=== PATIENT | female | born 2000 | race African-American/Black ===

== ENCOUNTER → 2018-08-31 | Outpatient (CLI) | payer OTHER ==
--- NOTE | 2018-08-31 17:20 | REP ---
TRIPLE PHASE BONE SCAN OF THE ANKLES AND FEET: Following the intravenous administration of 21.7 millicuries of Technetium 99M MDP, patient's ankles and feet are imaged in the flow phase and the anterior and posterior projections. There is fairly symmetrical blood flow bilaterally. Immediate blood pool in 3 hour delayed images are performed in the ankles and feet in multiple projections. Slightly increased blood pooling is seen medially in the left hindfoot. There is focal increased uptake at this location on delayed images. This appears to be located in the anteromedial aspect of the talus or calcaneus near the anterior aspect of the talocalcaneal joint. Otherwise there is symmetrical radiotracer uptake bilaterally. No other scintigraphic abnormalities are seen. IMPRESSION: Focal increase blood pooling and delayed activity in the left medial hindfoot, specifically this appears to be located in the anteromedial aspect of the talus or calcaneus. This could represent a stress fracture or stress related change. Electronically Signed by Caesar Mitchell MD 09/01/2018 03:23 P
== END ==
LOC: M RAD 08:44
PROVIDERS: ATTEND Family Medicine
DX: M79.672 Pain in left foot (principal)
CPT/HCPCS: 78315; A9503

== ENCOUNTER 2018-11-10 18:14 | Emergency (ER) | payer OTHER ==
[~2018-11-10] VITALS: Ht 157.5 cm; Wt 55.5 kg
[2018-11-10] MEDS ORDERED: vitamin d (18:23)
[2018-11-10] MEDS ORDERED: ACETAMINOPHEN 325 MG TAB PO ONE (20:00)
--- NOTE | 2018-11-10 20:36 | REPVR ---
EXAM: CT Cervical Spine Without Contrast EXAM DATE/TIME: 11/10/2018 8:01 PM CLINICAL HISTORY: 17 years old, female; Injury or trauma; Initial encounter; Blunt trauma; Additional info: Box fell on head TECHNIQUE: Imaging protocol: Axial computed tomography images of the cervical spine without contrast. Coronal and sagittal reformatted images were created and reviewed. Radiation optimization: All CT scans at this facility use at least one of these dose optimization techniques: automated exposure control; mA and/or kV adjustment per patient size (includes targeted exams where dose is matched to clinical indication); or iterative reconstruction. COMPARISON: No relevant prior studies available. FINDINGS: Vertebrae: No acute fracture. Normal alignment. Discs/Spinal canal/Neural foramina: No spinal stenosis. No neural foraminal narrowing. Soft tissues: Unremarkable. Thyroid: Small less than 5 mm nodule left lobe of the thyroid gland Lungs: Lung apices are normal. IMPRESSION: No acute findings. COMMENT: Consistent with the [employer]'s Incidental Findings Committee Report (J [employer] Poli [employer]iol 2015): Unless the patient has clinical risk factors for thyroid cancer or has suspicious findings characterized in this report, for patients under 35 years old any thyroid nodule less than 1.0 cm, and for patients at least 35 years old any thyroid nodule less than 1.5 cm is highly likely to be benign and does not require follow-up imaging or biopsy. Patients with limited life expectancy and/or comorbidities do not require follow up imaging or biopsy for nodules of any size. Electronically signed by: Eduardo Hamilton On 11/10/2018 20:36:10 PM
--- NOTE | 2018-11-10 20:38 | REPVR ---
EXAM: CT Head Without Contrast EXAM DATE/TIME: 11/10/2018 8:01 PM CLINICAL HISTORY: 17 years old, female; Injury or trauma; Additional info: Box fell on head TECHNIQUE: Imaging protocol: Axial computed tomography images of the head without contrast. Radiation optimization: All CT scans at this facility use at least one of these dose optimization techniques: automated exposure control; mA and/or kV adjustment per patient size (includes targeted exams where dose is matched to clinical indication); or iterative reconstruction. COMPARISON: No relevant prior studies available. FINDINGS: Brain: Normal. No hemorrhage. Unremarkable white matter. No mass effect. Ventricles: Normal. No ventriculomegaly. Bones/joints: Unremarkable. No acute fracture. Sinuses: Visualized sinuses are unremarkable. No fluid levels. Mastoid air cells: Visualized mastoid air cells are well aerated. No mastoid effusion. Soft tissues: Unremarkable. IMPRESSION: No acute intracranial abnormality. Electronically signed by: Eduardo Hamilton On 11/10/2018 20:37:47 PM
[2018-11-10 21:00] VITALS: BP 102/63
== END 2018-11-10 21:02 | disposition home or self-care (01) ==
LOC: M ED 18:14
DX: S06.0X0A Concussion without loss of consciousness, initial encounter (principal); W20.8XXA Other cause of strike by thrown, projected or falling object, initial encounter; Y92.89 Other specified places as the place of occurrence of the external cause; Y99.1 Military activity; Z79.899 Other long term (current) drug therapy

== ENCOUNTER 2019-02-14 15:06 | Emergency (ER) | payer OTHER ==
[~2019-02-14] VITALS: Ht 157.5 cm; Wt 54.3 kg
[~2019-02-14 15:06] MED LIST: vitamin d
[2019-02-14] MEDS ORDERED: CHOL100029 PO (15:15)
[2019-02-14 17:07] LABS: APPEARANCE, URINE CLEAR (CLEAR); BACTERIA, URINE AUTO NEGATIVE (NEGATIVE); BILIRUBIN, URINE AUTO NEGATIVE (NEGATIVE); BLOOD, URINE BLOOD NEGATIVE (NEGATIVE); COLOR, URINE YELLOW (YELLOW); GLUCOSE, URINE (UA) AUTO NEGATIVE (NEGATIVE); KETONE, URINE AUTO NEGATIVE (NEGATIVE); LEUKOCYTE ESTERASE, URINE AUTO TRACE (NEGATIVE); MUCUS, URINE SMALL (NEGATIVE); NITRITE, URINE AUTO NEGATIVE (NEGATIVE); PROTEIN, URINE AUTO NEGATIVE (NEGATIVE); RBC, URINE AUTO 4 /HPF (0-3); SQUAMOUS EPITHELIAL CELL UR AU 4 /HPF (0-6); WBC, URINE AUTO 2 /HPF (0-3)
[2019-02-14] MEDS ORDERED: VALA1TAB2 PO (17:11)
[2019-02-14 18:33] LABS: CHLAMYDIA DNA AMPLIFICATION NEGATIVE (NEGATIVE); GC DNA AMPLIFICATION NEGATIVE (NEGATIVE)
[2019-02-14 18:41] VITALS: BP 113/65
[2019-02-14] MEDS ORDERED: valACYclovir HCL 500 MG TAB PO ONE (19:15)
[2019-02-18 10:30] LABS: HSV-1 DNA Negative (Negative); HSV-2 DNA Negative (Negative)
== END 2019-02-14 19:13 | disposition home or self-care (01) ==
LOC: M ED 15:06
DX: Z77.21 Contact with and (suspected) exposure to potentially hazardous body fluids (principal); Z72.51 High risk heterosexual behavior; N90.89 Other specified noninflammatory disorders of vulva and perineum; Z79.899 Other long term (current) drug therapy

== ENCOUNTER 2019-02-25 18:49 | Emergency (ER) | payer OTHER ==
[~2019-02-25] VITALS: Ht 157.5 cm; Wt 54.5 kg
[~2019-02-25 18:49] MED LIST changes: +CHOL100029 PO; +VALA1TAB2 PO
[2019-02-25] MEDS ORDERED: MACR100C43 PO (20:23)
[2019-02-25] MEDS ORDERED: PHEN-501 PO (20:23)
[2019-02-25] MEDS ORDERED: PHENAZOPYRIDINE 100 MG TAB PO ONE (20:30)
[2019-02-25] MEDS ORDERED: NITROFURANTOIN (MACROBID) 100 MG CAP PO ONE (20:30)
[2019-02-25 20:45] VITALS: BP 111/59
== END 2019-02-25 20:47 | disposition home or self-care (01) ==
LOC: M ED 18:49
DX: R30.0 Dysuria (principal)

== ENCOUNTER 2021-11-06 07:19 | Inpatient (IN) | payer OTHER ==
[~2021-11-06] VITALS: Ht 157.5 cm; Wt 52.1 kg
[~2021-11-06 07:19] MED LIST changes: +MACR100C43 PO; +PHEN-501 PO; -VALA1TAB2 PO; +VALA1TAB5 PO
[2021-11-06 08:18] LABS: HEMOGLOBIN 13.5 g/dl (12.0-15.5); MEAN CORPUSCULAR HEMOGLOBIN 27.7 pg (27.0-33.0); MEAN CORPUSCULAR HGB CONC 31.4 g/dl (32.0-36.5); MEAN CORPUSCULAR VOLUME 88.3 fl (80.0-96.0); PLATELET COUNT, AUTOMATED 188 10^3/uL (150-450); RED BLOOD COUNT 4.87 10^6/uL (4.00-5.40); WHITE BLOOD COUNT 5.7 10^3/uL (4.0-10.0)
[2021-11-06 08:42] LABS: AMPHETAMINES LEVEL URINE NEGATIVE (NEGATIVE); BARBITURATES URINE NEGATIVE (NEGATIVE); BENZODIAZEPINES URINE NEGATIVE (NEGATIVE); CANNABINOIDS URINE POSITIVE (NEGATIVE); COCAINE METABOLITE URINE NEGATIVE (NEGATIVE); METHADONE URINE NEGATIVE (NEGATIVE); OPIATES URINE NEGATIVE (NEGATIVE); PHENCYCLIDINE URINE NEGATIVE (NEGATIVE)
[2021-11-06 08:46] LABS: RSV AMPLIFICATION NEGATIVE (NEGATIVE)
[2021-11-06 08:47] LABS: HCG, SERUM QUALITATIVE NEGATIVE (NEGATIVE)
[2021-11-06 08:49] LABS: ACETAMINOPHEN LEVEL < 2.0 UG/ML (10.0-30.0); ALT/SGPT 16 U/L (12-78); BILIRUBIN,DIRECT 0.2 MG/DL (0.0-0.2); BILIRUBIN,TOTAL 0.9 MG/DL (0.2-1.0); BLOOD UREA NITROGEN 8 MG/DL (7-18); CALCIUM LEVEL 9.4 MG/DL (8.5-10.1); CARBON DIOXIDE LEVEL 30 MEQ/L (21-32); CHLORIDE LEVEL 108 MEQ/L (98-107); CREATININE FOR GFR 0.88 MG/DL (0.55-1.30); ETHYL ALCOHOL (ETHANOL) < 0.003 % (0.000-0.010); GLOMERULAR FILTRATION RATE > 60.0 (>60); GLUCOSE, FASTING 88 MG/DL (70-100); POTASSIUM SERUM 4.5 MEQ/L (3.5-5.1); SALICYLATE LEVEL < 1.7 MG/DL (5.0-30.0); SODIUM LEVEL 141 MEQ/L (136-145); TOTAL PROTEIN 7.4 GM/DL (6.4-8.2)
[2021-11-06] MEDS ORDERED: HOME MED LIST COMPLETE! XX SCH (23:55)
[2021-11-07] MEDS ORDERED: ACETAMINOPHEN TAB 650MG DOSE (2X325MG) PO PRN (14:00)
[2021-11-07] MEDS ORDERED: MAALOX 30 ML SUSP *UDC PO PRN (14:00)
[2021-11-07] MEDS ORDERED: diphenhydrAMINE 25MG CAP PO PRN (14:00)
[2021-11-07] MEDS ORDERED: MOM 30ML SUSPENSION UDC PO PRN (14:00)
[2021-11-07] MEDS: NICOTINE 21MG/24HR 1 EA TRANSDERMAL TD SCH (15:55)
[2021-11-08 07:21] VITALS: BP 126/76
[2021-11-08] MEDS: NICOTINE 21MG/24HR 1 EA TRANSDERMAL TD SCH (08:16)
[2021-11-08] MEDS: busPIRone 5 MG TAB PO SCH ×2 (11:59→21:00)
[2021-11-08 17:38] VITALS: BP 102/58
[2021-11-08] MEDS ORDERED: CYCLOBENZAPRINE 5MG TABLET PO SCH (21:00)
[2021-11-08] MEDS ORDERED: buPROPion 100 MG TAB PO SCH (21:00)
[2021-11-09 06:53] VITALS: BP 99/53
[2021-11-09] MEDS: NICOTINE 21MG/24HR 1 EA TRANSDERMAL TD SCH (08:31)
[2021-11-09] MEDS: busPIRone 5 MG TAB PO SCH (08:31)
[2021-11-09] MEDS ORDERED: NICO21PAT TD (10:32)
[2021-11-09] MEDS ORDERED: HYDR-3363 PO (10:32)
[2021-11-09] MEDS ORDERED: BUPR-69 PO (10:32)
[2021-11-09] MEDS ORDERED: CYCL5TAB PO (10:32)
[2021-11-09] MEDS ORDERED: BUSP5TA PO (10:32)
== END 2021-11-09 13:52 | disposition home or self-care (01) | DRG 885 ==
LOC: M ED 07:19 → M ED INP 11-07 13:56 → M PSY 11-07 14:51
PROVIDERS: ADMIT Student in an Organized Health Care Education/Training Program; ATTEND Student in an Organized Health Care Education/Training Program
DX: F32.1 Major depressive disorder, single episode, moderate (principal); R45.851 Suicidal ideations; F43.10 Post-traumatic stress disorder, unspecified; F12.90 Cannabis use, unspecified, uncomplicated; F17.200 Nicotine dependence, unspecified, uncomplicated; F43.21 Adjustment disorder with depressed mood; Z91.410 Personal history of adult physical and sexual abuse

== ENCOUNTER 2021-12-16 13:47 | Emergency (ER) | payer OTHER ==
[~2021-12-16] VITALS: Ht 157.5 cm; Wt 46.9 kg
[~2021-12-16 13:47] MED LIST changes: +BUPR-69 PO; +BUSP5TA PO; +CYCL5TAB PO; +HYDR-3363 PO; +NICO21PAT TD
[2021-12-16 14:54] LABS: AMPHETAMINES LEVEL URINE NEGATIVE (NEGATIVE); BARBITURATES URINE NEGATIVE (NEGATIVE); BENZODIAZEPINES URINE NEGATIVE (NEGATIVE); CANNABINOIDS URINE POSITIVE (NEGATIVE); COCAINE METABOLITE URINE NEGATIVE (NEGATIVE); METHADONE URINE NEGATIVE (NEGATIVE); OPIATES URINE NEGATIVE (NEGATIVE); PHENCYCLIDINE URINE NEGATIVE (NEGATIVE)
[2021-12-16] MEDS ORDERED: ONDANSETRON 4MG 2ML VIAL IV ONE (15:30)
[2021-12-16] MEDS ORDERED: NS 1,000 ML IV ONE (15:30)
[2021-12-16 16:28] LABS: HEMATOCRIT 46.4 % (36.0-47.0); HEMOGLOBIN 15.4 g/dl (12.0-15.5); MEAN CORPUSCULAR HEMOGLOBIN 27.5 pg (27.0-33.0); MEAN CORPUSCULAR HGB CONC 33.2 g/dl (32.0-36.5); PLATELET COUNT, AUTOMATED 197 10^3/uL (150-450); RED BLOOD COUNT 5.59 10^6/uL (4.00-5.40)
[2021-12-16] MEDS ORDERED: FAMO20TA PO (16:44)
[2021-12-16 16:53] LABS: LYMPHOCYTES 16 % (16-44); MONOCYTES 4 % (0-5); NEUTROPHILS 80 % (28-66); PLATELET ESTIMATE NORMAL (NORMAL)
[2021-12-16 16:54] LABS: ALBUMIN 4.5 GM/DL (3.2-5.2); ALT/SGPT 25 U/L (12-78); BILIRUBIN,DIRECT 0.4 MG/DL (0.0-0.2); BILIRUBIN,TOTAL 1.2 MG/DL (0.2-1.0); BLOOD UREA NITROGEN 11 MG/DL (7-18); CALCIUM LEVEL 9.8 MG/DL (8.5-10.1); CARBON DIOXIDE LEVEL 29 MEQ/L (21-32); CHLORIDE LEVEL 96 MEQ/L (98-107); CREATININE FOR GFR 1.04 MG/DL (0.55-1.30); GLOMERULAR FILTRATION RATE > 60.0 (>60); GLUCOSE, FASTING 90 MG/DL (70-100); LIPASE 401 U/L (73-393); POTASSIUM SERUM 3.9 MEQ/L (3.5-5.1); SODIUM LEVEL 134 MEQ/L (136-145); TOTAL PROTEIN 8.4 GM/DL (6.4-8.2)
[2021-12-16 18:14] LABS: GC DNA AMPLIFICATION NEGATIVE (NEGATIVE)
[2021-12-16 18:32] LABS: HCG, SERUM QUALITATIVE NEGATIVE (NEGATIVE)
[2021-12-16] MEDS ORDERED: ISOVUE-370 76% 100ML VIAL As Ordered ONE (18:48)
[2021-12-16 19:18] VITALS: BP 139/89
[2021-12-16] MEDS ORDERED: PROMETHAZINE 25MG/ML 1ML VIAL IV ONE (19:20)
[2021-12-16] MEDS ORDERED: PROM25TA12 PO (20:01)
== END 2021-12-16 20:16 | disposition home or self-care (01) ==
LOC: M ED 13:47
DX: R10.9 Unspecified abdominal pain (principal); R11.2 Nausea with vomiting, unspecified; R74.8 Abnormal levels of other serum enzymes; Z79.899 Other long term (current) drug therapy
CPT/HCPCS: 74177; 80047; 80048; 80076; 80307; 81001; 83690; 84703; 85025; 87088; 87186; 87486; 87581; 87633; 87661; 87798; 87810; 87850; 96361; 96374; 96375; 99284; J2405; J2550; Q9967

== ENCOUNTER 2022-07-11 13:04 | Inpatient (IN) | payer OTHER ==
[~2022-07-11] VITALS: Ht 157.5 cm; Wt 47.0 kg
[~2022-07-11 13:04] MED LIST changes: +FAMO20TA PO; +PROM25TA12 PO
[2022-07-11 13:34] LABS: HEMATOCRIT 39.1 % (36.0-47.0); HEMOGLOBIN 12.2 g/dl (12.0-15.5); MEAN CORPUSCULAR HEMOGLOBIN 27.4 pg (27.0-33.0); MEAN CORPUSCULAR HGB CONC 31.2 g/dl (32.0-36.5); MEAN CORPUSCULAR VOLUME 87.7 fl (80.0-96.0); PLATELET COUNT, AUTOMATED 181 10^3/uL (150-450); RED BLOOD COUNT 4.46 10^6/uL (4.00-5.40); WHITE BLOOD COUNT 6.2 10^3/uL (4.0-10.0)
[2022-07-11 13:54] LABS: ETHYL ALCOHOL (ETHANOL) < 0.003 % (0.000-0.010)
[2022-07-11 13:55] LABS: ACETAMINOPHEN LEVEL < 2.0 UG/ML (10.0-20.0)
[2022-07-11 13:56] LABS: SALICYLATE LEVEL < 3.0 MG/DL (<30)
[2022-07-11 13:57] LABS: THYROID STIMULATING HORMONE 1.617 uIU/ML (0.55-4.78)
[2022-07-11 14:14] LABS: ALKALINE PHOSPHATASE 51 U/L (46-116); ALT/SGPT 11 U/L (7.0-40); AST/SGOT 16 U/L (<34); BILIRUBIN,DIRECT 0.3 MG/DL (<0.4); BILIRUBIN,TOTAL 0.6 MG/DL (0.3-1.2); BLOOD UREA NITROGEN 9 MG/DL (9-23); CALCIUM LEVEL 9.3 MG/DL (8.5-10.1); CARBON DIOXIDE LEVEL 30 MMOL/L (20-31); CHLORIDE LEVEL 103 MMOL/L (98-107); GLOMERULAR FILTRATION RATE > 60.0 (>60); GLUCOSE, FASTING 81 MG/DL (60-100); POTASSIUM SERUM 4.1 MMOL/L (3.5-5.1); SODIUM LEVEL 136 MMOL/L (136-145); TOTAL PROTEIN 6.5 G/DL (5.7-8.2)
[2022-07-11 14:27] LABS: HCG, SERUM QUALITATIVE NEGATIVE (NEGATIVE)
[2022-07-11 14:41] LABS: BARBITURATES URINE NEGATIVE (NEGATIVE); COCAINE METABOLITE URINE NEGATIVE (NEGATIVE)
[2022-07-11 14:42] LABS: AMPHETAMINES LEVEL URINE NEGATIVE (NEGATIVE); BENZODIAZEPINES URINE NEGATIVE (NEGATIVE); CANNABINOIDS URINE NEGATIVE (NEGATIVE); METHADONE URINE NEGATIVE (NEGATIVE); OPIATES URINE NEGATIVE (NEGATIVE); PHENCYCLIDINE URINE NEGATIVE (NEGATIVE)
[2022-07-11] MEDS ORDERED: TRET0.02 TOP (16:02)
[2022-07-11] MEDS ORDERED: GABA-1171 PO (16:02)
[2022-07-11] MEDS ORDERED: HOME MED LIST COMPLETE! XX SCH (16:05)
[2022-07-11] MEDS ORDERED: LIDOCAINE W/EPINEPHRINE 1% 20ML VIAL SC ONE (16:40)
[2022-07-11] MEDS ORDERED: BOOSTRIX/ADACEL VACCINE (DIPHTH/PERTUSS/ACELL/TETANUS) 0.5ML SYR IM.IMMUN ONE (16:40)
[2022-07-11] MEDS ORDERED: ACETAMINOPHEN TAB 650MG DOSE (2X325MG) PO PRN (19:00)
[2022-07-11] MEDS ORDERED: MAALOX 30 ML SUSP *UDC PO PRN (19:00)
[2022-07-11] MEDS ORDERED: MOM 30ML SUSPENSION UDC PO PRN (19:00)
[2022-07-11] MEDS ORDERED: OLANZapine ORAL DISINTEGRATING TAB 5MG PO PRN (19:00)
[2022-07-11 21:43] VITALS: BP 105/57
[2022-07-11] MEDS: traZODone 50 MG TAB PO PRN (22:26)
[2022-07-12 06:21] VITALS: BP 95/54
[2022-07-12] MEDS: NICOTINE POLACRILEX 2 MG GUM PO PRN ×3 (09:25→23:23)
[2022-07-12] MEDS: CEFDINIR 300 MG CAP (OMNICEF) PO SCH ×2 (10:54→20:41)
[2022-07-12 18:33] VITALS: BP 116/65
[2022-07-12] MEDS: traZODone 50 MG TAB PO PRN (20:41)
[2022-07-13 06:37] VITALS: BP 89/52
[2022-07-13] MEDS: CEFDINIR 300 MG CAP (OMNICEF) PO SCH ×2 (08:30→20:39)
[2022-07-13] MEDS: lamoTRIgine 25MG TAB PO SCH (08:30)
[2022-07-13] MEDS: NICOTINE POLACRILEX 2 MG GUM PO PRN ×3 (08:32→23:28)
[2022-07-13 10:08] VITALS: BP 101/50
[2022-07-13 18:26] VITALS: BP 134/63
[2022-07-13] MEDS: traZODone 50 MG TAB PO PRN (20:39)
[2022-07-14 06:20] VITALS: BP 109/58
[2022-07-14] MEDS: CEFDINIR 300 MG CAP (OMNICEF) PO SCH ×2 (09:19→20:09)
[2022-07-14] MEDS: lamoTRIgine 25MG TAB PO SCH (09:19)
[2022-07-14] MEDS: NICOTINE POLACRILEX 2 MG GUM PO PRN ×2 (09:21→20:09)
[2022-07-14] MEDS: tiZANidine 4 MG TAB PO PRN ×2 (13:22→21:36)
[2022-07-14 16:16] VITALS: BP 100/49
[2022-07-14] MEDS: traZODone 100 MG TAB PO PRN (21:03)
[2022-07-15 06:41] VITALS: BP 82/54
[2022-07-15] MEDS: CEFDINIR 300 MG CAP (OMNICEF) PO SCH ×2 (08:37→21:45)
[2022-07-15] MEDS: lamoTRIgine 25MG TAB PO SCH (08:37)
[2022-07-15] MEDS: NICOTINE POLACRILEX 2 MG GUM PO PRN ×3 (08:39→21:45)
[2022-07-15 17:01] VITALS: BP 100/60
[2022-07-15] MEDS: traZODone 100 MG TAB PO PRN (21:45)
[2022-07-15] MEDS: tiZANidine 4 MG TAB PO PRN (21:46)
[2022-07-16 06:48] VITALS: BP 114/69
[2022-07-16] MEDS: lamoTRIgine 25MG TAB PO SCH (08:05)
[2022-07-16] MEDS: CEFDINIR 300 MG CAP (OMNICEF) PO SCH (08:05)
[2022-07-16] MEDS: NICOTINE POLACRILEX 2 MG GUM PO PRN ×2 (08:06→12:59)
[2022-07-16] MEDS ORDERED: LAMI25TA PO (08:34)
[2022-07-16] MEDS ORDERED: CEFD300CAP PO (08:34)
== END 2022-07-16 13:02 | disposition home or self-care (01) | DRG 885 ==
LOC: M ED 13:04 → M ED INP 18:58 → M PSY 21:20
PROVIDERS: ADMIT Psychiatry & Neurology Psychiatry; ATTEND Psychiatry & Neurology Psychiatry
DX: F31.81 Bipolar II disorder (principal); R45.851 Suicidal ideations; N39.0 Urinary tract infection, site not specified; Z62.810 Personal history of physical and sexual abuse in childhood; F12.90 Cannabis use, unspecified, uncomplicated

== ENCOUNTER → 2022-12-11 | Outpatient (CLI) | payer OTHER ==
[~2022-12-11] MED LIST changes: +CEFD300CAP PO; +GABA-1171 PO; +LAMI25TA PO; +TRET0.02 TOP
[2022-12-11 17:58] LABS: APPEARANCE, URINE HAZY (CLEAR); BACTERIA, URINE AUTO NEGATIVE (NEGATIVE); BILIRUBIN, URINE AUTO NEGATIVE (NEGATIVE); BLOOD, URINE BLOOD 3+ (NEGATIVE); COLOR, URINE YELLOW (YELLOW); GLUCOSE, URINE (UA) AUTO NEGATIVE (NEGATIVE); KETONE, URINE AUTO NEGATIVE (NEGATIVE); LEUKOCYTE ESTERASE, URINE AUTO NEGATIVE (NEGATIVE); MUCUS, URINE SMALL (NEGATIVE); NITRITE, URINE AUTO NEGATIVE (NEGATIVE); PROTEIN, URINE AUTO NEGATIVE (NEGATIVE); RBC, URINE AUTO 0 /HPF (0-3); SPECIFIC GRAVITY URINE AUTO 1.013 (1.002-1.035); SQUAMOUS EPITHELIAL CELL UR AU 6 /HPF (0-6); UROBILINOGEN, URINE AUTO 0.2 mg/dL (0.0-2.0); WBC, URINE AUTO 1 /HPF (0-3)
[2022-12-11 18:37] LABS: FREE T3 3.1 PG/ML (2.3-4.2); FREE T4 1.22 NG/DL (0.89-1.76); THYROID STIMULATING HORMONE 1.63 uIU/ML (0.55-4.78)
== END ==
LOC: M PLAIMG 15:16
PROVIDERS: ATTEND Nurse Practitioner Family
DX: R07.9 Chest pain, unspecified (principal); R35.0 Frequency of micturition; R51.9 Headache, unspecified